=== PATIENT | female | born 1960 | race African-American/Black ===

== ENCOUNTER 2016-08-11 17:29 | Emergency (ER) | payer BC ==
[2016-08-11 17:33] VITALS: BP 138/77; PULSE 68; TEMP 97.7; BMI 32.3
[2016-08-11] MEDS ORDERED: KETOROLAC TROMETHAMINE 60 MG/2 ML VIAL IM ONE (18:50)
--- NOTE | 2016-08-11 20:24 | PDOC ---
History of Present Illness - General Chief Complaint: Pain, Acute Stated Complaint: RT LEG PAIN Time Seen by Provider: 08/11/16 18:28 History Source: Patient Exam Limitations: No Limitations - History of Present Illness Initial Comments: 08/11/16 20:20 CC pain posterior rightknee x 3 days; no trauma Occurred: reports: last week Severity: Yes: mild Lower Extremity Pain Location: right: knee Past History - Past Medical History Allergies/Adverse Reactions: Allergies Allergy/AdvReac Type Severity Reaction Status Date / Time No Known Allergies Allergy Verified 08/11/16 17:34 Home Medications: Ambulatory Orders Valsartan/Hydrochlorothiazide [Diovan Hct 160-12.5 mg Tablet] 1 combo PO DAILY 06/05/12 Albuterol Sulfate Inhaler - [Ventolin HFA Inhaler -] 2 inh IH Q6H #1 inh Atorvastatin Ca [Lipitor] 0 mg PO HS 10/31/15 Anemia: No Asthma: No Cancer: No Cardiac Disorders: Yes (HEART MURMUR) CVA: No COPD: No CHF: No Dementia: No Diabetes: No GI Disorders: No Disorders: No HTN: Yes Hypercholesterolemia: Yes Liver Disease: No Seizures: No Thyroid Disease: No - Surgical History Abdominal Surgery: Yes (Umbilical hernia, HIATAL HERNIA SX) Appendectomy: No Cardiac Surgery: No Cholecystectomy: Yes (1) Lung Surgery: No Neurologic Surgery: No Orthopedic Surgery: No - Immunization History Immunization Up to Date: Yes - Psycho/Social/Smoking Cessation Hx Suicidal Ideation: No Smoking Status: No Smoking History: Never smoked Have you smoked in the past 12 months: No Number of Cigarettes Smoked Daily: 0 Hx Alcohol Use: No Drug/Substance Use Hx: No Substance Use Type: None Hx Substance Use Treatment: No Review of Systems - Review of Systems Constitutional: No: Chills, Fever, Malaise Respiratory: No: Symptoms reported, Cough Cardiac (ROS): No: Symptoms Reported Musculoskeletal: No: Joint Pain, Joint Stiffness Integumentary: No: Bruising *Physical Exam - Vital Signs Last Vital Signs Temp Pulse Resp BP Pulse Ox 97.7 F 68 16 138/77 99 08/11/16 17:30 08/11/16 17:30 08/11/16 17:30 08/11/16 17:30 08/11/16 17:30 - Physical Exam General Appearance: Yes: Appropriately Dressed HEENT: positive: TMs Normal, Pharynx Normal Neck: positive: Supple. negative: Tender, Rigid Respiratory/Chest: positive: Lungs Clear Musculoskeletal: positive: Other (Tender posterior right knee increases with full extension; ST mass noted; no joint laxity) ED Treatment Course - RADIOLOGY Radiology Studies Ordered: Category Date Time Status KNEE 2 POS-RIGHT [RAD] Stat Radiology 08/11/16 18:50 Ordered DUPLEX VASCUL US-1 LEG [US] Stat Ultrasound 08/11/16 18:50 Taken - Medications Given in the ED: ED Medications Discontinued Medications Generic Name Dose Route Start Last Admin Trade Name Freq PRN Reason Stop Dose Admin Ketorolac Tromethamine 60 mg 08/11/16 18:50 08/11/16 19:03 Toradol Injection - IM 08/11/16 18:51 60 mg ONCE ONE Administration Medical Decision Making - Medical Decision Making 08/11/16 20 duplex notes bakers cyst; goes along with PE; feeling much better post toradol in ED *DC/Admit/Observation/Transfer Diagnosis at time of Disposition: Synovial cyst of knee Qualifiers: Laterality: right Qualified Code(s): M71.21 - Synovial cyst of popliteal space [Martinez], right knee - Discharge Dispostion Disposition: HOME Condition at time of disposition: Stable Admit: No - Patient Instructions Additional Instructions: please follow up with dr ramos 1 week if no better - Post Discharge Activity Work/School Note: Back to Work
== END 2016-08-11 20:38 | disposition home or self-care (01) ==
LOC: JERFT 17:29 → JER 17:29 → JERFT 20:38
PROC: 3E0233Z Introduction of Anti-inflammatory into Muscle, Percutaneous Approach (ICD-10-PCS; principal; 2016-08-11)
DX: M71.21 Synovial cyst of popliteal space [Baker], right knee (principal); I10 Essential (primary) hypertension; E78.00 Pure hypercholesterolemia, unspecified
CPT/HCPCS: 93971-TC; 99281-25

== ENCOUNTER 2017-03-02 11:03 | Emergency (ER) | payer BC ==
[2017-03-02 11:09] VITALS: BMI 33.9
[2017-03-02] MEDS ORDERED: CYCLOBENZAPRINE HCL 10 MG TABLET (FP) PO ONE (12:02)
--- NOTE | 2017-03-02 12:15 | PDOC ---
History of Present Illness - General Chief Complaint: Back Pain Stated Complaint: BACK PAIN/abd Time Seen by Provider: 03/02/17 11:31 History Source: Patient, Unavil. due to pt. cond. - History of Present Illness Initial Comments: 03/02/17 12:10 56-year-old female presents to the ED with worsening low back pain that began 2 days ago and has progressively worsened causing her difficulty walking and performing activities of daily living. Patient states was told a few years ago that she had degenerative disease to her lower back but denies any history of herniation and denies any radiation of pain to her lower extremities but does state when pain occurs it is tight band feeling to her lower back radiating to her bilateral flank region. Patient denies nausea vomiting diarrhea, abdominal pain, dysuria, recent injury, or change in activity. Occurred: reports: other Severity: reports: moderate Pain Location: reports: back Method of Injury: Yes: unknown Associated Symptoms (Fall): trouble walking Past History - Past Medical History Allergies/Adverse Reactions: Allergies Allergy/AdvReac Type Severity Reaction Status Date / Time No Known Allergies Allergy Verified 03/02/17 11:05 Home Medications: Ambulatory Orders Valsartan/Hydrochlorothiazide [Diovan Hct 160-12.5 mg Tablet] 1 combo PO DAILY 06/05/12 Albuterol Sulfate Inhaler - [Ventolin HFA Inhaler -] 2 inh IH Q6H #1 inh Atorvastatin Ca [Lipitor] 0 mg PO HS 10/31/15 Naproxen [Naprosyn -] 500 mg PO BID #20 tablet 08/11/16 Cyclobenzaprine HCl [Flexeril -] 5 mg PO TID PRN #12 tablet 03/02/17 Oxycodone HCl/Acetaminophen [Percocet 5-325 mg Tablet] 1 - 2 tab PO Q6H PRN #12 tab MDD 4 03/02/17 Anemia: No Asthma: No Cancer: No Cardiac Disorders: Yes (HEART MURMUR) CVA: No COPD: No CHF: No Dementia: No Diabetes: No GI Disorders: No Disorders: No HTN: Yes Hypercholesterolemia: Yes Liver Disease: No Seizures: No Thyroid Disease: No - Surgical History Abdominal Surgery: Yes (Umbilical hernia, HIATAL HERNIA SX) Appendectomy: No Cardiac Surgery: No Cholecystectomy: Yes (1) Lung Surgery: No Neurologic Surgery: No Orthopedic Surgery: No - Immunization History Immunization Up to Date: Yes - Psycho/Social/Smoking Cessation Hx Suicidal Ideation: No Smoking Status: No Smoking History: Never smoked Have you smoked in the past 12 months: No Number of Cigarettes Smoked Daily: 0 Information on smoking cessation initiated: No Hx Alcohol Use: No Drug/Substance Use Hx: No Substance Use Type: None Hx Substance Use Treatment: No Patient Lives Alone: No Trauma Specific PMHX - Complaint Specific PMHX Back Injury: No Neck Injury: No Review of Systems - Review of Systems Able to Perform ROS?: Yes Constitutional: No: Symptoms Reported Respiratory: No: Symptoms reported Cardiac (ROS): No: Symptoms Reported ABD/GI: No: Symptoms Reported : No: Symptoms Reported Musculoskeletal: Yes: Back Pain, Muscle Pain (lower back) Integumentary: No: Symptoms Reported Neurological: No: Paresthesia, Tingling, Weakness Hematologic/Lymphatic: No: Symptoms Reported *Physical Exam - Vital Signs Last Vital Signs Temp Pulse Resp BP Pulse Ox 97.9 F 52 L 18 166/106 100 03/02/17 11:07 03/02/17 11:07 03/02/17 11:07 03/02/17 11:07 03/02/17 11:07 - Physical Exam General Appearance: Yes: Nourished, Appropriately Dressed. No: Apparent Distress Neck: positive: Supple. negative: Tender, Decreased range of motion Gastrointestinal/Abdominal: positive: Normal Bowel Sounds, Soft. negative: Distended, Guarding, Tenderness Musculoskeletal: positive: Vertebral Tenderness (l5 tenderness and lateral paraspinous muscles). negative: CVA Tenderness Extremity: positive: Normal Capillary Refill. negative: Pedal Edema Integumentary: positive: Normal Color, Warm, Moist Neurologic: positive: Motor Strength 5/5 (able to perform ble straight leg raise ) ED Treatment Course - RADIOLOGY Radiology Studies Ordered: Category Date Time Status SPINE-LUMBAR ONLY [RAD] Stat Radiology 03/02/17 12:02 Ordered Medical Decision Making - Medical Decision Making 03/02/17 12:13 Patient here for evaluation of gradually worsening low back pain. Patient states unable to get out of bed this morning or bend over to put her shoes on so patient called EMS. Patient took no medication for the above. Patient similar complaints and is L5 and laterally to his paraspinous muscles. Patient ordered for urine, Percocet Flexeril and lumbar spine x-ray. 03/02/17 14:11 X-ray shows narrowing of L5-S1 intervertebral disc space. Since prior x-ray from 2007 there is no change of this adverse nature. Patient does state feeling better and able to ambulate in the ER. Patient will be given a dose of Toradol prior to discharge and discharged home with Percocet along with Flexeril with referral to orthopedist. *DC/Admit/Observation/Transfer Diagnosis at time of Disposition: Low back pain Qualifiers: Chronicity: acute Back pain laterality: bilateral Sciatica presence: without sciatica Qualified Code(s): M54.5 - Low back pain - Discharge Dispostion Disposition: HOME Condition at time of disposition: Improved - Prescriptions Prescriptions: Cyclobenzaprine HCl [Flexeril -] 5 mg PO TID PRN #12 tablet PRN Reason: Back Pain Oxycodone HCl/Acetaminophen [Percocet 5-325 mg Tablet] 1 - 2 tab PO Q6H PRN #12 tab MDD 4 PRN Reason: Pain - Referrals Referrals: Katty Kim MD [Primary Care Provider] - Gino Navarrete MD [Staff Physician] - - Patient Instructions Printed Discharge Instructions: DI for Low Back Pain Additional Instructions: I recommend this time that you take medication for pain rest, apply ice to the affected area, and use proper body mechanics when lifting or moving. Please also follow up with referred orthopedist and/or return to ED if symptoms worsen. Please also follow up with Dr. Kim as discussed. - Post Discharge Activity Work/School Note: Back to Work
[2017-03-02] MEDS ORDERED: CYCLOBENZAPRINE HCL 10 MG TABLET (FP) ONE (12:19)
[2017-03-02 12:30] LABS: URINE APPEARANCE CLEAR; URINE BILIRUBIN NEGATIVE (NEGATIVE); URINE BLOOD 1+ (NEGATIVE); URINE COLOR YELLOW; URINE GLUCOSE (UA) NEGATIVE (NEGATIVE); URINE KETONE NEGATIVE (NEGATIVE); URINE LEUK ESTERASE TRACE (NEGATIVE); URINE NITRITE NEGATIVE (NEGATIVE); URINE PROTEIN NEGATIVE (NEGATIVE); URINE UROBILINOGEN NEGATIVE mg/dL (0.2-1.0)
[2017-03-02 12:41] LABS: URINE BACTERIA RARE /hpf (NONE SEEN); URINE MUCUS RARE; URINE RBC <1 /hpf (0-3); URINE WBC 2 /hpf (3-5)
[2017-03-02] MEDS ORDERED: KETOROLAC TROMETHAMINE 60 MG/2 ML VIAL IM ONE (14:07)
[2017-03-02] MEDS ORDERED: KETOROLAC TROMETHAMINE 30 MG/1 ML VIAL ONE (14:37)
[2017-03-02 15:06] VITALS: BP 153/85; PULSE 89; TEMP 97.5
== END 2017-03-02 15:05 | disposition home or self-care (01) ==
LOC: JER 11:03
PROC: 3E0233Z Introduction of Anti-inflammatory into Muscle, Percutaneous Approach (ICD-10-PCS; principal; 2017-03-02)
DX: M54.5 Low back pain (principal); R26.2 Difficulty in walking, not elsewhere classified; M51.37 Other intervertebral disc degeneration, lumbosacral region
CPT/HCPCS: 72100-TC; 81003; 81015; 99282-25

== ENCOUNTER 2017-03-05 07:38 | Emergency (ER) | payer BC ==
--- NOTE | 2017-03-05 07:44 | PDOC ---
History of Present Illness - General History Source: Patient Exam Limitations: No Limitations - History of Present Illness Initial Comments: 03/05/17 07:49 The patient is a 56 year old female, with a significant past medical history of HTN and hypercholesterolemia , who presents to the emergency department with worsening lower back pain for about 4 days. She reports having lower back pain with the new onset of radiating bakc pain down her legs (worse on her RIGHT leg) . She reports since having trouble with most weight bearing activities. She reports being in this ER on 03/02/17 where she had a toradol shot and negative x- ray. She reports at that time having no radiculopathy. She denies any numbness/ tingling in her LEs. She denies recent fevers, chills, headache or dizziness. She denies recent nausea, vomit, diarrhea or constipation. She denies recent dysuria, frequency, urgency or hematuria. She denies recent chest pain or shortness of breath. Allergies: NKA Past surgical history: Cholecystectomy Social history: Nonsmoker. Denies EtOH use and recreational drug use. Primary Care Physician: <Franklin Hopkins - Last Filed: 03/05/17 07:51> <Gustabo Sheffield - Last Filed: 03/05/17 11:51> - General Stated Complaint: PAIN Time Seen by Provider: 03/05/17 07:43 Past History <Franklin Hopkins - Last Filed: 03/05/17 07:51> - Past Medical History Anemia: No Asthma: No Cancer: No Cardiac Disorders: Yes (HEART MURMUR) CVA: No COPD: No CHF: No Dementia: No Diabetes: No GI Disorders: No Disorders: No HTN: Yes Hypercholesterolemia: Yes Liver Disease: No Seizures: No Thyroid Disease: No - Surgical History Abdominal Surgery: Yes (Umbilical hernia, HIATAL HERNIA SX) Appendectomy: No Cardiac Surgery: No Cholecystectomy: Yes (1) Lung Surgery: No Neurologic Surgery: No Orthopedic Surgery: No - Immunization History Immunization Up to Date: Yes - Suicide/Smoking/Psychosocial Hx Smoking Status: No Smoking History: Never smoked Have you smoked in the past 12 months: No Number of Cigarettes Smoked Daily: 0 Hx Alcohol Use: No Drug/Substance Use Hx: No Substance Use Type: None Hx Substance Use Treatment: No <Gustabo Sheffield - Last Filed: 03/05/17 11:51> - Past Medical History Allergies/Adverse Reactions: Allergies Allergy/AdvReac Type Severity Reaction Status Date / Time No Known Allergies Allergy Verified 03/05/17 07:54 Home Medications: Ambulatory Orders Valsartan/Hydrochlorothiazide [Diovan Hct 160-12.5 mg Tablet] 1 combo PO DAILY 06/05/12 Albuterol Sulfate Inhaler - [Ventolin HFA Inhaler -] 2 inh IH Q6H #1 inh Atorvastatin Ca [Lipitor] 0 mg PO HS 10/31/15 Naproxen [Naprosyn -] 500 mg PO BID #20 tablet 08/11/16 Cyclobenzaprine HCl [Flexeril -] 5 mg PO TID PRN #12 tablet 03/02/17 Oxycodone HCl/Acetaminophen [Percocet 5-325 mg Tablet] 1 - 2 tab PO Q6H PRN #12 tab MDD 4 03/02/17 Cyclobenzaprine HCl [Flexeril 10 mg] 10 mg PO TID PRN #30 tablet 03/05/17 Ondansetron [Zofran *Odt*] 8 mg SL TID #30 od.tablet 03/05/17 Oxycodone HCl/Acetaminophen [Percocet 5-325 mg Tablet] 1 - 2 tab PO Q4H #20 tablet MDD 6 03/05/17 Review of Systems - Review of Systems Able to Perform ROS?: Yes Comments:: 03/05/17 07:49 GENERAL/CONSTITUTIONAL: No fever or chills. No weakness. HEAD, EYES, EARS, NOSE AND THROAT: No change in vision. No ear pain or discharge. No sore throat. CARDIOVASCULAR: No chest pain or shortness of breath. RESPIRATORY: No cough, wheezing, or hemoptysis. GASTROINTESTINAL: No nausea, vomiting, diarrhea or constipation. GENITOURINARY: No dysuria, frequency, or change in urination. MUSCULOSKELETAL: +lower back pain. No joint or muscle swelling or pain. No neck pain. SKIN: No rash NEUROLOGIC: No headache, vertigo, loss of consciousness, or change in strength/ sensation. ENDOCRINE: No increased thirst. No abnormal weight change. HEMATOLOGIC/LYMPHATIC: No anemia, easy bleeding, or history of blood clots. ALLERGIC/IMMUNOLOGIC: No hives or skin allergy. <O'Rolando,Franklin - Last Filed: 03/05/17 07:51> *Physical Exam - Physical Exam Comments: 03/05/17 07:49 GENERAL: Awake, alert, and fully oriented, in no acute distress HEAD: No signs of trauma EYES: PERRLA, EOMI, sclera anicteric, conjunctiva clear ENT: Auricles normal inspection, hearing grossly normal, nares patent, oropharynx clear without exudates. Moist mucosa NECK: Normal ROM, supple, no lymphadenopathy, JVD, or masses BACK: Tenderness in the paraspinal musculature and lumbar spine region.. LUNGS: Breath sounds equal, clear to auscultation bilaterally. No wheezes, and no crackles HEART: Regular rate and rhythm, normal S1 and S2, no murmurs, rubs or gallops ABDOMEN: Soft, nontender, normoactive bowel sounds. No guarding, no rebound. No masses EXTREMITIES: Normal range of motion, no edema. No clubbing or cyanosis. No cords, erythema, or tenderness NEUROLOGICAL: Cranial nerves II through XII grossly intact. Normal speech, normal gait SKIN: Warm, Dry, normal turgor, no rashes or lesions noted <Franklin Hopkins - Last Filed: 03/05/17 07:51> *DC/Admit/Observation/Transfer - Attestations Scribe Attestion: 03/05/17 07:49 Documentation prepared by Franklin Hopkins, acting as medical care manager for Gustabo Sheffield DO. <Franklin Hopkins - Last Filed: 03/05/17 07:51> - Attestations Physician Attestion: 03/05/17 07:44 I, Dr. Gustabo Sheffield, attest that this document has been prepared under my direction and personally reviewed by me in its entirety. I further attest, that it accurately reflects all work, treatment, procedures and medical decision -making performed by me. <Gustabo Sheffield - Last Filed: 03/05/17 11:51> Diagnosis at time of Disposition: Spinal stenosis at L4-L5 level, Scoliosis (and kyphoscoliosis), idiopathic Low back pain Qualifiers: Chronicity: acute Back pain laterality: unspecified Sciatica presence: with sciatica Sciatica laterality: sciatica of right side Qualified Code(s): M54.41 - Lumbago with sciatica, right side - Discharge Dispostion Disposition: HOME Condition at time of disposition: Improved - Prescriptions Prescriptions: Cyclobenzaprine HCl [Flexeril 10 mg] 10 mg PO TID PRN #30 tablet PRN Reason: Lower Back Pain Oxycodone HCl/Acetaminophen [Percocet 5-325 mg Tablet] 1 - 2 tab PO Q4H #20 tablet MDD 6 Ondansetron [Zofran *Odt*] 8 mg SL TID #30 od.tablet - Referrals Referrals: Katty Kim MD [Primary Care Provider] - - Patient Instructions Printed Discharge Instructions: DI for Lumbar Radiculopathy, DI for Low Back Pain Additional Instructions: rick- I am sorry that this is so awful for you. Like I saidl, there is nothing stronger I can prescribe for you from the ER. Your CT scan does show spinal stenosis, you have to keep your appointment this afternoon with your doctor so he can order an MRI for you as an outpatient and refer you to a neurologist or even a neurosurgeon. Hopefully the Percocet and the Zofran will be enough to keep you comfortable. Best- Dr. Gustabo Sheffield - Post Discharge Activity Forms/Work/School Notes: Back to Work
[2017-03-05] MEDS ORDERED: HYDROmorphone HCL 2 MG TABLET PO ONE (07:51)
[2017-03-05] MEDS ORDERED: methylPREDNISolone ACET (DEPO) 80 MG/1 ML VIAL IM ONE (07:51)
[2017-03-05] MEDS ORDERED: KETOROLAC TROMETHAMINE 60 MG/2 ML VIAL IM ONE (07:51)
[2017-03-05] MEDS ORDERED: ONDANSETRON *ODT* 4 MG TABLET SL ONE (07:51)
[2017-03-05 07:55] VITALS: BP 177/89; PULSE 72; TEMP 98; BMI 33.9
[2017-03-05] MEDS ORDERED: HYDROmorphone HCL 2 MG TABLET ONE (08:04)
[2017-03-05] MEDS ORDERED: ONDANSETRON 8 MG TABLET (FP) PO ONE (08:04)
[2017-03-05] MEDS ORDERED: KETOROLAC TROMETHAMINE 60 MG/2 ML VIAL ONE (08:04)
[2017-03-05] MEDS ORDERED: methylPREDNISolone NA SUCC 125 MG/2 ML VIAL ONE (08:05)
== END 2017-03-05 11:57 | disposition home or self-care (01) ==
LOC: JER 07:38
PROC: 3E0333Z Introduction of Anti-inflammatory into Peripheral Vein, Percutaneous Approach (ICD-10-PCS; principal; 2017-03-05)
PROC: 3E033GC Introduction of Other Therapeutic Substance into Peripheral Vein, Percutaneous Approach (ICD-10-PCS; 2017-03-05)
DX: M54.41 Lumbago with sciatica, right side (principal); E78.00 Pure hypercholesterolemia, unspecified; I10 Essential (primary) hypertension
CPT/HCPCS: 72131-TC; 99281-25

== ENCOUNTER 2018-10-14 09:59 | Emergency (ER) | payer BC ==
[2018-10-14 10:07] VITALS: BP 154/84; PULSE 60; TEMP 98; BMI 33.9
--- NOTE | 2018-10-14 12:03 | PDOC ---
History of Present Illness - General Chief Complaint: Injury Stated Complaint: FALL / KNEE PAIN Time Seen by Provider: 10/14/18 11:56 - History of Present Illness Initial Comments: 10/14/18 12:02 58 y/o female with a past medical history significant for anxiety dyslipidemia and hypertension presents for evaluation after falling at work. She states she tripped and fell on her knee however over the last couple months she has been having frequent falls and unsteady gait Past History - Past Medical History Allergies/Adverse Reactions: Allergies Allergy/AdvReac Type Severity Reaction Status Date / Time No Known Allergies Allergy Verified 10/14/18 10:04 Home Medications: Ambulatory Orders Valsartan/Hydrochlorothiazide [Diovan Hct 160-12.5 mg Tablet] 1 combo PO DAILY 06/05/12 Albuterol Sulfate Inhaler - [Ventolin HFA Inhaler -] 2 inh IH Q6H #1 inh Atorvastatin Ca [Lipitor] 0 mg PO HS 10/31/15 Naproxen [Naprosyn -] 500 mg PO BID #20 tablet 08/11/16 Cyclobenzaprine HCl [Flexeril -] 5 mg PO TID PRN #12 tablet 03/02/17 Oxycodone HCl/Acetaminophen [Percocet 5-325 mg Tablet] 1 - 2 tab PO Q6H PRN #12 tab MDD 4 03/02/17 Cyclobenzaprine HCl [Flexeril 10 mg] 10 mg PO TID PRN #30 tablet 03/05/17 Ondansetron [Zofran *Odt*] 8 mg SL TID #30 od.tablet 03/05/17 Oxycodone HCl/Acetaminophen [Percocet 5-325 mg Tablet] 1 - 2 tab PO Q4H #20 tablet MDD 6 03/05/17 Anemia: No Asthma: No Cancer: No Cardiac Disorders: Yes (HEART MURMUR) CVA: No COPD: No CHF: No Dementia: No Diabetes: No GI Disorders: No Disorders: No HTN: Yes Hypercholesterolemia: Yes Liver Disease: No Seizures: No Thyroid Disease: No - Surgical History Abdominal Surgery: Yes (Umbilical hernia, HIATAL HERNIA SX) Appendectomy: No Cardiac Surgery: No Cholecystectomy: Yes (1) Lung Surgery: No Neurologic Surgery: No Orthopedic Surgery: No - Immunization History Immunization Up to Date: Yes - Suicide/Smoking/Psychosocial Hx Smoking Status: No Smoking History: Never smoked Have you smoked in the past 12 months: No Number of Cigarettes Smoked Daily: 0 Hx Alcohol Use: No Drug/Substance Use Hx: No Substance Use Type: None Hx Substance Use Treatment: No Review of Systems - Review of Systems Constitutional: Yes: Chills, Night Sweats. No: Fever Musculoskeletal: Yes: Joint Pain Neurological: Yes: Unsteady Gait, Ataxia, Dizziness. No: Headache *Physical Exam - Vital Signs Last Vital Signs Temp Pulse Resp BP Pulse Ox 98.0 F 60 18 154/84 98 10/14/18 10:05 10/14/18 10:05 10/14/18 10:05 10/14/18 10:05 10/14/18 10:05 - Physical Exam Comments: 10/14/18 13:49 HEAD: NC/AT EYES: Conjuntiva clear Ears: Canals and TM's normal NOSE: No d/c THROAT: Moist mucous membrances, oral pharanx clear, uvula midline NECK: Supple without adenopathy CARDIAC: S1 S2 LUNGS: CTA Full and Equal breath sounds ABDOMEN: Soft NT ND MS: Full ROM in all joints without edema; there are superficial abrasions about the anterior aspects of both knees which occurred from a prior fall. NEUROLOGIC: No gross sensory or motor deficits, NVID SKIN: Normal color and temperature no lesions or rashes ED Treatment Course - RADIOLOGY Radiology Studies Ordered: Category Date Time Status HEAD CT WITHOUT CONTRAST [CT] Stat CT Scan 10/14/18 12:01 Ordered Medical Decision Making - Medical Decision Making 10/14/18 13:50 Benign examination. Patient with intermittent falls because of sudden dizziness I will have her follow-up with neurology *DC/Admit/Observation/Transfer Diagnosis at time of Disposition: Dizziness, Frequent falls - Discharge Dispostion Disposition: HOME Condition at time of disposition: Stable Decision to Admit order: No - Referrals Referrals: Katty Kim MD [Primary Care Provider] - Gino Spencer MD [Staff Physician] - - Patient Instructions Printed Discharge Instructions: DI for Dizziness-Nonvertigo Additional Instructions: Follow-up with her evaluation of your dizziness with neurology within the next 1 -2 days. Return to the emergency room for worsening symptoms. - Post Discharge Activity Forms/Work/School Notes: Back to Work
== END 2018-10-14 14:02 | disposition home or self-care (01) ==
LOC: JERFT 09:59
DX: R42 Dizziness and giddiness (principal); Z91.81 History of falling; W18.09XA Striking against other object with subsequent fall, initial encounter; Y93.89 Activity, other specified; Y92.89 Other specified places as the place of occurrence of the external cause; Y99.0 Civilian activity done for income or pay; I10 Essential (primary) hypertension; E78.00 Pure hypercholesterolemia, unspecified; R01.1 Cardiac murmur, unspecified
CPT/HCPCS: 70450-TC; 99281-25

== ENCOUNTER 2019-07-07 23:56 | Emergency (ER) | payer BC ==
[2019-07-08 01:08] VITALS: BP 154/78; PULSE 54; TEMP 97.7; BMI 35.0
--- NOTE | 2019-07-08 01:42 | PDOC ---
Attending Attestation - Resident Resident Name: Gino Gallardo - ED Attending Attestation I have performed the following: I have examined & evaluated the patient, The case was reviewed & discussed with the resident, I agree w/resident's findings & plan - HPI HPI: 07/08/19 05:15 see resident hpi - Physicial Exam PE: 07/08/19 05:15 agree with resident exam - Medical Decision Making 07/08/19 05:16 59-year-old female with pain to the left foot status post fall CTs of the head cervical thoracic and lumbar spines show no acute traumatic injury X-ray of the left foot shows an angulated fracture of the fourth toe, middle phalanx Closed reduction with traction performed at bedside With some improvement, toe neurovascularly intact both before and after procedure Patient refused further attempts Will DC to follow-up with podiatry as patient has chronic deformities of adjacent toe Will DC with surgical shoe 07/08/19 05:18
--- NOTE | 2019-07-08 01:49 | PDOC ---
History of Present Illness - General Chief Complaint: Injury Stated Complaint: FALL/INJURY Time Seen by Provider: 07/08/19 01:29 - History of Present Illness Initial Comments: 59F PMH HTN HLD Scoliosis presenting after slip and fall down 10 stairs w/o head strike or LOC. c/o left and righ back pain and distorted left 4th toe w/ pain. no numbness or tingling or weakness. no f/c, n/v, cp/sob. NKDA Past History - Past Medical History Allergies/Adverse Reactions: Allergies Allergy/AdvReac Type Severity Reaction Status Date / Time No Known Allergies Allergy Verified 07/08/19 01:09 Home Medications: Ambulatory Orders Valsartan/Hydrochlorothiazide [Diovan Hct 160-12.5 mg Tablet] 1 combo PO DAILY 06/05/12 Albuterol Sulfate Inhaler - [Ventolin HFA Inhaler -] 2 inh IH Q6H #1 inh Atorvastatin Ca [Lipitor] 0 mg PO HS 10/31/15 Naproxen [Naprosyn -] 500 mg PO BID #20 tablet 08/11/16 Cyclobenzaprine HCl [Flexeril -] 5 mg PO TID PRN #12 tablet 03/02/17 Oxycodone HCl/Acetaminophen [Percocet 5-325 mg Tablet] 1 - 2 tab PO Q6H PRN #12 tab MDD 4 03/02/17 Cyclobenzaprine HCl [Flexeril 10 mg] 10 mg PO TID PRN #30 tablet 03/05/17 Ondansetron [Zofran *Odt*] 8 mg SL TID #30 od.tablet 03/05/17 Oxycodone HCl/Acetaminophen [Percocet 5-325 mg Tablet] 1 - 2 tab PO Q4H #20 tablet MDD 6 03/05/17 Anemia: No Asthma: No Cancer: No Cardiac Disorders: Yes (HEART MURMUR) CVA: No COPD: No CHF: No Dementia: No Diabetes: No GI Disorders: No Disorders: No HTN: Yes Hypercholesterolemia: Yes Liver Disease: No Seizures: No Thyroid Disease: No - Surgical History Abdominal Surgery: Yes (Umbilical hernia, HIATAL HERNIA SX) Appendectomy: No Cardiac Surgery: No Cholecystectomy: Yes (1) Lung Surgery: No Neurologic Surgery: No Orthopedic Surgery: No - Immunization History Immunization Up to Date: Yes - Psycho Social/Smoking Cessation Hx Smoking Status: No Smoking History: Never smoked Have you smoked in the past 12 months: No Number of Cigarettes Smoked Daily: 0 Hx Alcohol Use: No Drug/Substance Use Hx: No Substance Use Type: None Hx Substance Use Treatment: No Review of Systems - Review of Systems Comments:: CONSTITUTIONAL: Denies F / C HEENT: Denies headache, lightheadedness, dizziness, sore throat, rhinorrhea RESP: Denies SOB CARD: Denies chest pain GI: Denies N / V / D, abdominal pain : Denies dysuria SKIN: Denies rashes NEURO: Denies numbness, tingling, weakness MSK: Endorses LBP (MSK) and left 4th toe deformity and pain *Physical Exam - Vital Signs Last Vital Signs Temp Pulse Resp BP Pulse Ox 97.7 F 54 L 18 154/78 98 07/08/19 00:00 07/08/19 00:00 07/08/19 00:00 07/08/19 00:00 07/08/19 00:00 - Physical Exam GEN: NAD, comfortable. AAOx3. HEENT: NC/AT. No facial asymmetry. Moist mucous membranes. Normal voice. Supple neck w/ FROM w/o midline TTP. CV: S1/S2, RRR, no m/r/g LUNG: CTAB, no wheezes, crackles, rales, rhonchi. GI: Soft, ndnt, +BS, no guarding, no rebound. NEURO: Moving all extremities well. 5/5 UE strength b/l. 5/5 LE strength b/l. Sensation symmetric and intact throughout. MSK: 2+ distal pulses. FROM UE and LE b/l. There is lateral deviation of the left 4th toe. No obvious deformities of the UE b/l. BACK: +TTP of the musculature, lumbar paraspinal. No obvious deformities, no step offs, no midline TTP. There is no pelvic instability. No signs of trauma. + scoliosis. SKIN: Warm, dry, no rashes appreciated. PSYCH: Normal mood and affect. Medical Decision Making - Medical Decision Making 07/08/19 01:47 59F s/p slip and fall down steps w/o head strike or LOC; fall attenuated by patient grabbing onto railing. There is a deformity of the left 4th toe w/ lateral deviation and TTP. Neurologically intact. Likely fracture of the left 4th toe. r/o spinal fracture. CT L-spine XR left foot pain ctrl 07/08/19 02:16 ED team interview found patient stating that she does not know if she hit her head and she tumbled down steps. Will CT head, neck, C/T/L spine. 07/08/19 03:41 CT Head IOC Impression: FINDINGS: No acute intracranial abnormality. No hemorrhage. Osseous structures are intact. THIS DOCUMENT HAS BEEN ELECTRONICALLY SIGNED Gino Ng MD 07/08/19 05:30 CT NECK IOC: FINDINGS: Negative for cervical spine fracture or malalignment. THIS DOCUMENT HAS BEEN ELECTRONICALLY SIGNED Gino Ng MD CT TSPINE IOC: No acute fracture or traumatic malalignment. No substantial canal or neural foraminal stenosis. Coronary artery disease. THIS DOCUMENT HAS BEEN ELECTRONICALLY SIGNED Vivian Lancaster M.D. CT LSPINE IOC: No acute fracture or traumatic malalignment. Moderate canal stenosis L4-L5. THIS DOCUMENT HAS BEEN ELECTRONICALLY SIGNED Vivian Lancaster M.D. XR left foot and toes per ED team: fracture of the 4th toe w/ lateral shift of the 4th distal phalanges. ED team attempted to relocate the toe w/o success pt and team agreed w/ podiatry f/u today - ortho boot, crutches DC home with above plan Discharge - Discharge Information Problems reviewed: Yes Clinical Impression/Diagnosis: Fall Qualifiers: Encounter type: subsequent encounter Qualified Code(s): W19.XXXD - Unspecified fall, subsequent encounter Toe fracture, left Qualifiers: Encounter type: initial encounter Toe: lesser toe Fracture type: closed Phalanx : unspecified phalanx Fracture alignment: nondisplaced Qualified Code(s): S92.505A - Nondisplaced unspecified fracture of left lesser toe(s), initial encounter for closed fracture Condition: Fair Disposition: HOME - Admission No - Follow up/Referral Referrals: Katty Kim MD [Primary Care Provider] - Amador Daniel MD [Staff Physician] - Nancy Castle DPM [Staff Physician] - - Patient Discharge Instructions Patient Printed Discharge Instructions: Toe Fracture Additional Instructions: Your CAT scan of your head, neck, and spine was negative for fractures and bleed. The X-Ray of the left foot and toes shows a fracture. We attempted to set your toe back into place but were unable to. We discussed options and agreed upon Podiatry follow up. Below are referrals to Podiatrists (foot doctors) who you can follow up with. See a Advocacy Director in today 07/08/19. Return to the Emergency Department if you experience: - change in behavior - numbness, tingling, or weakness of any limb - severe pain - anything that concerns you - Post Discharge Activity Work/Back to School Note: Back to Work
[2019-07-08] MEDS ORDERED: ACETAMINOPHEN 500 MG TABLET (FP) PO ONE (01:57)
[2019-07-08] MEDS ORDERED: ACETAMINOPHEN 325 MG TABLET (FP) ONE (02:08)
== END 2019-07-08 05:22 | disposition home or self-care (01) ==
LOC: JER 23:56
PROC: 0QSRXZZ Reposition Left Toe Phalanx, External Approach (ICD-10-PCS; principal; 2019-07-07)
DX: S92.512A Displaced fracture of proximal phalanx of left lesser toe(s), initial encounter for closed fracture (principal); W10.8XXA Fall (on) (from) other stairs and steps, initial encounter; Y93.89 Activity, other specified; Y92.038 Other place in apartment as the place of occurrence of the external cause; Y99.8 Other external cause status
CPT/HCPCS: 70450-TC; 72125-TC; 72128-TC; 72131-TC; 73630-TC-LT; 73660-TC-LT-FY; 99282-25

== ENCOUNTER 2020-08-11 17:47 | Emergency (ER) | payer BC, OTHER ==
[2020-08-11] MEDS ORDERED: BAMLANIVIMAB 700 MG in SODIUM CHLORIDE 250 ML IVPB ONE (18:10)
[2020-08-11 18:23] VITALS: TEMP 99.6; BMI 32.3
[2020-08-11 19:59] LABS: HEMATOCRIT 45.4 % (32.4-45.2); HEMOGLOBIN 14.8 GM/dL (10.7-15.3); MCH 27.5 pg (25.7-33.7); MCHC 32.7 g/dl (32.0-36.0); MEAN PLT VOLUME 9.2 fl (7.5-11.1); PLATELET COUNT 140 K/MM3 (134-434); RBC 5.41 M/mm3 (3.60-5.2); RDW 15.5 % (11.6-15.6); WHITE BLOOD COUNT 2.8 K/mm3 (4.0-10.0)
[2020-08-11 20:24] LABS: POTASSIUM 3.8 mmol/L (3.5-5.1)
[2020-08-11 20:26] LABS: CALCIUM 8.7 mg/dL (8.5-10.1)
[2020-08-11 20:27] LABS: BLOOD UREA NITROGEN 14.8 mg/dL (7-18)
[2020-08-11 20:31] LABS: CREATININE 0.9 mg/dL (0.55-1.3)
[2020-08-11 21:52] VITALS: BP 126/73; PULSE 72
== END 2020-08-11 22:53 | disposition home or self-care (01) ==
LOC: JCOVINFU 17:47 → JER 17:47 → JCOVINFU 22:53
DX: U07.1 COVID-19 (principal)
CPT/HCPCS: 36415; 80048; 85027; 99285-25; M0239; Q0239

== ENCOUNTER 2024-02-23 13:06 | Emergency (ER) | payer OTHER ==
[2024-02-23 13:35] VITALS: BP 146/78; PULSE 48; RESP 18; TEMP 97.8; BMI 31.8
== END 2024-02-23 15:49 | disposition home or self-care (01) ==
LOC: JERFT 13:06
PROC: 0HQ1XZZ Repair Face Skin, External Approach (ICD-10-PCS; principal; 2024-02-23)
DX: S01.81XA Laceration without foreign body of other part of head, initial encounter (principal); W20.8XXA Other cause of strike by thrown, projected or falling object, initial encounter
CPT/HCPCS: 93005; 93010; 99283-25